=== PATIENT | male | born 1955 | race Caucasian/White ===

== ENCOUNTER 2018-09-04 15:59 | Inpatient (IN) ==
--- NOTE | 2018-09-04 19:09 | ECG ---
Date Performed: 09/04/2018 Time Performed: 16:11:07 PTAGE: 63 years EKG: Sinus rhythm ST DEVIATION AND MODERATE T-WAVE ABNORMALITY, CONSIDER INFERIOR ISCHEMIA ABNORMAL ECG Compared to pr ior electrocardiogram, Nonspecific ST T-wave changes are present. PREVIOUS TRACING : 04/15/2009 10.30 DOCTOR: Austin Davis Interpretating Date/Time 09/04/2018 19:08:44
--- NOTE | 2018-09-04 19:59 | ED ---
HPI General Chief Complaint: Chest Pain Stated Complaint: DR lord-chest pain Time Seen by Provider: 09/04/18 19:48 Source: patient Mode of arrival: ambulatory Limitations: no limitations History of Present Illness HPI narrative: 63-year-old male with a history of CABG, angina, CVA on Plavix presents to the emergency department for evaluation of chest pain that has been persistent for several months. He says he went to [facility] primary care with a performed an EKG and saw a change in his EKG from the previous and decided to send him to the emergency department today for evaluation. He states this morning his pain was 5/10 midsternal and it felt like a "elephant was sitting on his chest". He had radiation into his jaw and left arm and developed a tremor as well. He is currently pain-free. He denies shortness of breath but states he has nausea with these episodes of chest pain. He states activity increases his pain and sitting decreases his pain. He also has a history of hypertension, hyperlipidemia, lifelong smoker and states compliance with his medications. Patient has not been previously prescribed nitroglycerin. Patient saw his brake lining curer, Dr. Simon 2 years ago but has not seen him since. He states that he had stents placed in June at [facility] with a "female brake lining curer". He does not know the name. He has not followed up with cardiology since then. He denies fevers, chills, use of illicit drugs, abdominal pain, leg pain. States he drinks alcohol almost daily but denies history of withdrawal symptoms if he does not drink alcohol. Related Data Home Medications Medication Instructions Recorded Confirmed aspirin 81 mg PO DAILY 09/04/18 09/04/18 clopidogrel [Plavix] 75 mg PO DAILY 09/04/18 09/04/18 enalapril maleate 10 mg PO DAILY 09/04/18 09/04/18 metoprolol tartrate 25 mg PO BID 09/04/18 09/04/18 temazepam 15 mg PO HS 09/04/18 09/04/18 Allergies Allergy/AdvReac Type Severity Reaction Status Date / Time No Known Allergies Uncoded 04/15/09 15:48 Review of Systems ROS: all other systems reviewed are negative [facility] Medical History Medical History Myocardial infarction (Acute) Surgical History Surgical History H/O cardiac catheterization (Acute) H/O heart artery stent (Acute) Social History Social History Substance History: No History of Abuse Smoking Status: Heavy tobacco smoker Tobacco Type: Cigarettes How Often Do You Have a Drink Containing Alcohol: 2 to 4 times a month Recent Travel in [facility] within the Last 8 Weeks: No Recent Out of Country Travel within the Last 8 Weeks: No Immunization History Tetanus Immunization: >5 Years Exam Narrative Exam Narrative: GENERAL: WD, WN in NAD SKIN: Focused skin assessment warm/dry. HEAD: Atraumatic. Normocephalic. EYES: Pupils equal and round. No scleral icterus. No injection or drainage. ENT: No nasal bleeding or discharge. Mucous membranes pink and moist. No tonsillar hypertrophy or exudate. NECK: Trachea midline. No JVD. No meningismus. No midline tenderness. CARDIOVASCULAR: Regular rate and rhythm. No murmur appreciated. RESPIRATORY: No accessory muscle use. Clear to auscultation. Breath sounds equal bilaterally. GASTROINTESTINAL: Abdomen soft, non-tender, nondistended. No CVAT. MUSCULOSKELETAL: No obvious deformities. No clubbing. No cyanosis. No edema. No tenderness to palpation of the calves. Sensation intact to bilateral lower extremities. NEUROLOGICAL: Awake and alert. No obvious cranial nerve deficits. Motor grossly within normal limits. Normal speech. PSYCHIATRIC: Appropriate mood and affect; insight and judgment normal. Course Initial Documented Vital Signs Temperature 97.6 F 09/04/18 16:03 Pulse Rate 64 09/04/18 16:03 Respiratory Rate 18 09/04/18 16:03 Blood Pressure 148/77 H 09/04/18 16:03 Pulse Oximetry 100 09/04/18 16:03 Last Documented Vital Signs Temperature 97.6 F 09/04/18 16:03 Pulse Rate 56 L 09/04/18 21:41 Respiratory Rate 17 09/04/18 21:41 Blood Pressure 129/63 09/04/18 21:41 Pulse Oximetry 94 L 09/04/18 21:41 Medical Decision Making [facility] Narrative Medical decision making narrative: 63-year-old male presents to emergency department for evaluation of chest pain that has been persistent for a couple of months. He decided to come in today for evaluation at the recommendation of his primary care physician. His primary care physician told him that there were some EKG changes. Patient presents very typically for ACS. He does not follow cardiology and he had stents placed in June. We will obtain labs and plan to admit this patient. EKG shows sinus rhythm rate 60, T wave inversions in Leads II, III, aVF. EKG today shows changes from the previous. Our last record was in 2008. Pt brought in an EKG from his office along with note stating concern for EKG changes as an outpatient. Pt took ASA 81mg. Will give complete 243mg ASA in the ED. CXR stable. Labs are notable for troponin 0.62, BUN/Cr 25/1.31. Will discuss this case with cardiology and admit. I spoke with Dr. Rey who recommended heparin therapy. Plan to admit, NPO after midnight for probable cath and stenting in the morning. Heparin initiated. My attending spoke with Dr. Galicia who agreed to the admission under Dr. Youssef. Again, patient is chest pain free at the time of my evaluation. Medical Screen Exam Complete: Yes Emergency Medical Condition: Yes Differential Diagnosis Differential Diagnosis: AMI, angina, unstable angina, costochondritis, rib fracture, pneumonia, pneumothorax, aortic dissection, aortic aneurysm, pneumonitis, pulmonary embolism Lab Data Result diagrams: 09/04/18 20:10 09/04/18 20:10 Lab Results 09/04/18 09/04/18 09/04/18 Range/Units 20:10 20:10 20:10 WBC 9.1 (4.0-11.0) th/mm3 RBC 4.67 (4.50-5.90) mil/mm3 Hgb 15.9 (13.0-17.0) gm/dL Hct 45.8 (39.0-51.0) % MCV 97.9 (80.0-100.0) fL MCH 34.1 H (27.0-34.0) pg MCHC 34.8 (32.0-36.0) % RDW 15.1 (11.6-17.2) % Plt Count 285 (150-450) th/mm3 MPV 7.7 (7.0-11.0) fL Neut % (Auto) 45.7 (16.0-70.0) % Lymph % (Auto) 37.1 (9.0-44.0) % [place] % (Auto) 12.6 H (0.0-8.0) % Eos % (Auto) 3.9 (0.0-4.0) % Baso % (Auto) 0.7 (0.0-2.0) % Neut # (Auto) 4.2 (1.8-7.7) th/mm3 Lymph # (Auto) 3.4 (1.0-4.8) th/mm3 [place] # (Auto) 1.1 H (0.0-0.9) th/mm3 Eos # (Auto) 0.4 (0.0-0.4) th/mm3 Baso # (Auto) 0.1 (0.0-0.2) th/mm3 WBC Differential . Differential Comment Auto diff final PT 9.6 L (9.8-11.6) sec INR 0.9 Ratio APTT 28.2 (23.4-31.7) sec Sodium 140 (136-145) meq/L Potassium 4.3 (3.5-5.1) meq/L Chloride 109 H (98-107) meq/L Carbon Dioxide 25.1 (21.0-32.0) meq/L Anion Gap 6 (5-15) meq/L BUN 25 H (7-18) mg/dL Creatinine 1.31 H (0.60-1.30) mg/dL Estimated GFR 55 L (>89) mL/min Random Glucose 81 (74-106) mg/dL Calcium 8.6 (8.5-10.1) mg/dL Magnesium 2.2 (1.5-2.5) mg/dL Total Bilirubin 0.3 (0.2-1.0) mg/dL AST 20 (15-37) U/L ALT 17 (12-78) U/L Alkaline Phosphatase 88 (45-117) U/L Troponin I 0.62 H* (0.02-0.05) ng/mL Total Protein 7.1 (6.4-8.2) g/dL Albumin 3.3 L (3.4-5.0) g/dL Imaging Data Radiologist's impression: Chest X-Ray 09/04/18 19:59 CONCLUSION: No acute cardiopulmonary disease demonstrated. Previous median sternotomy. Discharge Plan Discharge Disposition Patient Disposition: ED Admit(ED Internal Use Only) Discharge Condition Condition: Stable Discharge Order Discharge Orders: ED Use Only Admit Order (Routine); Ordered 09/04/18 Ordered By: Jen Padilla Discharge Details Diagnosis: ACS (acute coronary syndrome), Non-ST elevation [place] (NSTEMI) Physicians Team ED Provider: Rosendo Grier ED Midlevel Provider: Jen Padilla Primary Care Provider: [facility], Attending Provider: Fabian Youssef Status ED Status: Admitted Patient
--- NOTE | 2018-09-04 20:14 | XR ---
EXAM DATE: 09/04/2018 8:11 PM EST AGE/SEX: 63 years / Male INDICATIONS: Upper chest pain. CLINICAL DATA: This is the patient's initial encounter. Patient reports that signs and symptoms have been present for 1 week and indicates a pain score of 7/10. MEDICAL/SURGICAL HISTORY: Cerebrovascular disease. CABG. Coronary artery stent. COMPARISON: No prior exams available for comparison. FINDINGS: No infiltrate, effusion or pneumothorax demonstrated. Heart size within normal limits. Patient has had previous median sternotomy. CONCLUSION: No acute cardiopulmonary disease demonstrated. Previous median sternotomy. Electronically signed by: Scooter Sterling MD 09/04/2018 8:12 PM EST
[2018-09-04 20:23] LABS: Baso # (Auto) 0.1 th/mm3 (0.0-0.2); Baso % (Auto) 0.7 % (0.0-2.0); Eos # (Auto) 0.4 th/mm3 (0.0-0.4); Eos % (Auto) 3.9 % (0.0-4.0); Hematocrit 45.8 % (39.0-51.0); Hemoglobin 15.9 gm/dL (13.0-17.0); Lymph # (Auto) 3.4 th/mm3 (1.0-4.8); Lymph % (Auto) 37.1 % (9.0-44.0); Mean Corpuscular HGB Conc 34.8 % (32.0-36.0); Mean Corpuscular Hemoglobin 34.1 pg (27.0-34.0); Mean Corpuscular Volume 97.9 fL (80.0-100.0); Mean Platelet Volume 7.7 fL (7.0-11.0); Mono # (Auto) 1.1 th/mm3 (0.0-0.9); Mono % (Auto) 12.6 % (0.0-8.0); Neut # (Auto) 4.2 th/mm3 (1.8-7.7); Neut % (Auto) 45.7 % (16.0-70.0); Platelet Count 285 th/mm3 (150-450); Red Blood Count 4.67 mil/mm3 (4.50-5.90); Red Cell Distribution Width 15.1 % (11.6-17.2); White Blood Count 9.1 th/mm3 (4.0-11.0)
[2018-09-04 20:35] LABS: Activated Partial Thrombo Time 28.2 sec (23.4-31.7); INR 0.9 Ratio; Prothrombin Time 9.6 sec (9.8-11.6)
[2018-09-04 20:43] LABS: Albumin 3.3 g/dL (3.4-5.0); Anion Gap 6 meq/L (5-15); Aspartate Aminotransferase 20 U/L (15-37); Blood Urea Nitrogen 25 mg/dL (7-18); Calcium 8.6 mg/dL (8.5-10.1); Carbon Dioxide 25.1 meq/L (21.0-32.0); Chloride 109 meq/L (98-107); Glomerular Filtration Rate 55 mL/min (>89); Glucose,Random 81 mg/dL (74-106); Magnesium 2.2 mg/dL (1.5-2.5); Potassium 4.3 meq/L (3.5-5.1); Sodium 140 meq/L (136-145)
[2018-09-04 20:44] LABS: Alanine Aminotransferase 17 U/L (12-78)
[2018-09-04 20:48] LABS: Alkaline Phosphatase 88 U/L (45-117); Total Protein 7.1 g/dL (6.4-8.2)
[2018-09-04 20:50] LABS: Troponin I 0.62 ng/mL (0.02-0.05)
[2018-09-04] MEDS ORDERED: Heparin 10,000 UNITS/10 ML Vial (for IV use) IV.PUSH STA (21:08)
[2018-09-04] MEDS ORDERED: Heparin Drip 25,000 UNIT/250 ML BAG IV.CONT PRN (21:20)
--- NOTE | 2018-09-04 22:51 | P.HP ---
History of Present Illness [facility]: [facility] Chief Complaint: Sent by PCP for abnormal electrocardiogram history of chest pain for weeks History of Present Illness: 63-year-old male with a history of coronary artery bypass surgery, angina, CVA on Plavix presents to the emergency department for evaluation of chest pain that has been persistent for several months. Patient went to his primary care physician today had an electrocardiogram performed there was sent to emergency room as they felt there was a change from the old electrocardiogram. Patient states the pain he typically gets is about 5/10 midsternal pain feels like an elephant is sitting on his chest radiating to his jaw or left arm with some mild tremors as well in the emergency room he has been pain-free. Patient denies shortness of breath does have a little bit of nausea with these episodes of chest pain. He is a smoker but is compliant with his medications. Patient has not seen cardiology in over 2 years , although he did say that he had stents placed in June patient denies fever chills abdominal pain or leg pain. He does drink alcohol almost daily. In the emergency room he had T waves inferiorly had a positive troponin consistent with non-stent cardiology is aware and is started the patient on with plan for cath in a.m. n.p.o. after midnight. - Diagnosis (1) ACS (acute coronary syndrome) (2) Non-ST elevation [place] (NSTEMI) Inpatient Certification: I certify that the inpatient services were ordered in accordance with Medicare regulations governing the order. This includes certification that hospital inpatient services are reasonable and necessary and in the case of services not specified as inpatient-only under 42 CFR 419.22(n), that they are appropriately provided as inpatient services in accordance to with the 2-midnight benchmark under 43 CFR 412.3(e) Review of Systems All other systems reviewed negative except as stated in HPI PMFSH - History History Provided By: Patient - Medical History Medical History: Medical History (Last Reviewed 09/04/18 @ 22:49 by Hema Galicia MD) Myocardial infarction - Surgical History Surgical History: Surgical History (Last Reviewed 09/04/18 @ 22:49 by Hema Galicia MD) H/O cardiac catheterization H/O heart artery stent - Tobacco History Tobacco Use In Past 30 Days: Yes Smoking Status: Heavy tobacco smoker Tobacco Type: Cigarettes - Alcohol History How Often Do You Have a Drink Containing Alcohol: 2 to 4 times a month - Substance Use History Substance History: No History of Abuse - Travel History Recent Travel in the [place] Within the Last 8 Weeks: No Recent Travel Out of the Country Within the Last 8 Weeks: No - Immunization History Tetanus Immunization: >5 Years Medications and Allergies Active Medications: Active Medications Clopidogrel Bisulfate (Plavix) 75 mg PO DAILY [facility] Enalapril Maleate (Vasotec) 10 mg PO DAILY [facility] Heparin Sodium/Dextrose (Heparin/D5w 25,000 U/250 Ml) 25,000 unit in 250 mls @ 0 mls/hr IV.CONT TITRATE PRN; Protocol PRN Reason: Per Protocol Last Admin: 09/04/18 21:40 Dose: 1,000 units/hr, 10 mls/hr Metoprolol Tartrate (Lopressor) 25 mg PO BID [facility] Sodium Chloride (Ns Flush) 2 ml IV.FLUSH UNSCH PRN PRN Reason: FLUSH AFTER USING IV ACCESS Temazepam (Restoril) 15 mg PO [facility] Allergies Allergy/AdvReac Type Severity Reaction Status Date / Time No Known Allergies Uncoded 04/15/09 15:48 Home Medications Medication Instructions Recorded Confirmed Type aspirin 81 mg PO DAILY 09/04/18 09/04/18 History clopidogrel [Plavix] 75 mg PO DAILY 09/04/18 09/04/18 History enalapril maleate 10 mg PO DAILY 09/04/18 09/04/18 History metoprolol tartrate 25 mg PO BID 09/04/18 09/04/18 History temazepam 15 mg PO HS 09/04/18 09/04/18 History Exam Vital signs: Vital Signs 09/04/18 16:03 09/04/18 21:41 Temperature 97.6 F Pulse Rate 64 56 L Respiratory Rate 18 17 Blood Pressure 148/77 H 129/63 Pulse Oximetry 100 94 L Intake & Output 09/04/18 09/04/18 09/05/18 06:59 18:59 06:59 Weight 79.379 kg Narrative: GENERAL: SKIN: Warm and dry. HEAD: Normocephalic. EYES: No scleral icterus. No injection or drainage. NECK: Supple, trachea midline. No JVD or lymphadenopathy. CARDIOVASCULAR: Regular rate and rhythm without murmurs, gallops, or rubs. RESPIRATORY: Breath sounds equal bilaterally. No accessory muscle use. GASTROINTESTINAL: Abdomen soft, non-tender, nondistended. MUSCULOSKELETAL: No cyanosis, or edema. BACK: Nontender without obvious deformity. No CVA tenderness. Results - Labs CBC & Chem 7: 09/04/18 20:10 09/04/18 20:10 Labs: Laboratory Results - last 24 hr 09/04/18 09/04/18 09/04/18 20:10 20:10 20:10 WBC 9.1 RBC 4.67 Hgb 15.9 Hct 45.8 MCV 97.9 MCH 34.1 H MCHC 34.8 RDW 15.1 Plt Count 285 MPV 7.7 Neut % (Auto) 45.7 Lymph % (Auto) 37.1 [place] % (Auto) 12.6 H Eos % (Auto) 3.9 Baso % (Auto) 0.7 Neut # (Auto) 4.2 Lymph # (Auto) 3.4 [place] # (Auto) 1.1 H Eos # (Auto) 0.4 Baso # (Auto) 0.1 WBC Differential . Differential Comment Auto diff final PT 9.6 L INR 0.9 APTT 28.2 Sodium 140 Potassium 4.3 Chloride 109 H Carbon Dioxide 25.1 Anion Gap 6 BUN 25 H Creatinine 1.31 H Estimated GFR 55 L Random Glucose 81 Calcium 8.6 Magnesium 2.2 Total Bilirubin 0.3 AST 20 ALT 17 Alkaline Phosphatase 88 Troponin I 0.62 H* Total Protein 7.1 Albumin 3.3 L - Imaging Impressions Chest X-Ray 09/04/18 19:59 CONCLUSION: No acute cardiopulmonary disease demonstrated. Previous median sternotomy. Caprini VTE Risk Assessment Caprini VTE Risk Assessment: Moderate/High Risk (score >= 2) Caprini Risk Assessment Model: Point Value = 1 Point Value = 2 Point Value = 3 Point Value = 5 Age 41-60 Minor surgery BMI > 25 kg/m2 Swollen legs Varicose veins or History of unexplained or recurrent spontaneous Oral contraceptives or hormone replacement Sepsis (< 1 month) Serious lung disease, including pneumonia (< 1 month) Abnormal pulmonary function Acute myocardial infarction Congestive heart failure (< 1 month) History of inflammatory bowel disease Medical patient at bed rest Age 61-74 Arthroscopic surgery Major open surgery (> 45 min) Laparoscopic surgery (> 45 min) Malignancy Confined to bed (> 72 hours) Immobilizing plaster cast Central venous access Age >= 75 History of VTE Family history of VTE Factor V Leiden Prothrombin [id number] Lupus anticoagulant Anticardiolipin antibodies Elevated serum homocysteine Heparin-induced thrombocytopenia Other congenital or acquired thrombophilia Stroke (< 1 month) Elective arthroplasty Hip, pelvis, or leg fracture Acute spinal cord injury (< 1 month) Prophylaxis Regimen: Total Risk Factor Score Risk Level Prophylaxis Regimen 0-1 Low Early ambulation 2 Moderate Order ONE of the following: *Sequential Compression Device (SCD) *Heparin 5000 units SQ BID 3-4 Higher Order ONE of the following medications: *Heparin 5000 units SQ TID *Enoxaparin/Lovenox 40 mg SQ daily (WT < 150 kg, CrCl > 30 mL/min) *Enoxaparin/Lovenox 30 mg SQ daily (WT < 150 kg, CrCl > 10-29 mL/min) *Enoxaparin/Lovenox 30 mg SQ BID (WT < 150 kg, CrCl > 30 mL/min) AND/OR *Sequential Compression Device (SCD) 5 or more Highest Order ONE of the following medications: *Heparin 5000 units SQ TID (Preferred with Epidurals) *Enoxaparin/Lovenox 40 mg SQ daily (WT < 150 kg, CrCl > 30 mL/min) *Enoxaparin/Lovenox 30 mg SQ daily (WT < 150 kg, CrCl > 10-29 mL/min) *Enoxaparin/Lovenox 30 mg SQ BID (WT < 150 kg, CrCl > 30 mL/min) AND *Sequential Compression Device (SCD) Assessment and Plan - Assessment (1) ACS (acute coronary syndrome) Code(s): I24.9 - Acute ischemic heart disease, unspecified Status: Acute Plan: ACS protocol consult cardiology (2) Non-ST elevation DE (NSTEMI) Code(s): I21.4 - Non-ST elevation (NSTEMI) myocardial infarction Status: Acute Plan: Consult cardiology admit to cardiac unit - Plan Further plan as case develops Code Status: Full Discussed Condition With: Patient
[2018-09-05 03:33] LABS: Hematocrit 43.5 % (39.0-51.0); Hemoglobin 14.8 gm/dL (13.0-17.0); Mean Corpuscular Hemoglobin 33.7 pg (27.0-34.0); Mean Corpuscular Volume 99.2 fL (80.0-100.0); Mean Platelet Volume 7.3 fL (7.0-11.0); Platelet Count 262 th/mm3 (150-450); Red Blood Count 4.38 mil/mm3 (4.50-5.90); Red Cell Distribution Width 14.6 % (11.6-17.2); White Blood Count 8.4 th/mm3 (4.0-11.0)
--- NOTE | 2018-09-05 08:58 | P.CONCA ---
History of Present Illness Primary Care Provider: [facility] Chief Complaint: Sent by PCP for abnormal electrocardiogram history of chest pain for weeks History of Present Illness: 63-year-old male with past medical history of CAD with PCI 2006 CABG LYNNE-LAD 2008 PCI 06/2018, PAD with right iliac stent 2001, HTN who presented with chest pain. The patient was previously followed by Dr. Simon, but last saw him 2.5 years ago. He states that with his insurance he was no longer able to see Dr. Simon. He recently established with for healthcare plans but has not yet been able to see his PCP. He reports that he has been having angina for the past few weeks. He reports he was in for a [facility] in June and required 2 stents placed at that time with Dr. Moran. Cath report from 06/02 with patently mid LAD with totally occluded proximal LAD, PCI to critical mid left circumflex stenosis and distal RCA lesion. he reports for about 2 weeks his chest discomfort was improved but then recurred. He reports his chest discomfort occurs with exertion and at night at rest. Chest discomfort is described as midsternal radiating to the jaw on left arm. He went to urgent care yesterday with chest discomfort was found to have EKG changes and sent to the ED. EKG in the ED shows NSR, lateral ST depressions, inferior T wave inversions. Troponin found to be 0.62. Patient started on heparin GTT. Chest pain relieved overnight with Nitropaste. Review of Systems All other systems reviewed negative except as stated in HPI PMFSH - History History Provided By: Patient, Medical Record - Medical History Medical History: Medical History (Last Updated 09/05/18 @ 08:53 by VAHID Ortiz) CAD (coronary artery disease) HTN (hypertension) Myocardial infarction PAD (peripheral artery disease) - Surgical History Surgical History: Surgical History (Last Updated 09/05/18 @ 08:53 by VAHID Ortiz) H/O cardiac catheterization H/O heart artery stent S/P CABG x 1 Status post insertion of iliac artery stent - Tobacco History Second Hand Smoke Exposure: Yes Tobacco Use In Past 30 Days: Yes Smoking Status: Current every day smoker Tobacco Type: Cigarettes - Alcohol History How Often Do You Have a Drink Containing Alcohol: 4 or more times a week - Substance Use History Substance History: No History of Abuse - Travel History Recent Travel in the [facility] Within the Last 8 Weeks: No Recent Travel Out of the Country Within the Last 8 Weeks: No - Immunization History Tetanus Immunization: >5 Years Medications and Allergies Allergies Allergy/AdvReac Type Severity Reaction Status Date / Time No Known Allergies Uncoded 04/15/09 15:48 Home Medications Medication Instructions Recorded Confirmed Type aspirin 81 mg PO DAILY 09/04/18 09/04/18 History clopidogrel [Plavix] 75 mg PO DAILY 09/04/18 09/04/18 History enalapril maleate 10 mg PO DAILY 09/04/18 09/04/18 History metoprolol tartrate 25 mg PO BID 09/04/18 09/04/18 History temazepam 15 mg PO HS 09/04/18 09/04/18 History Active Medications: Active Medications Aspirin (Aspirin Chew) 81 mg PO DAILY [facility] Clopidogrel Bisulfate (Plavix) 75 mg PO DAILY [facility] Enalapril Maleate (Vasotec) 10 mg PO DAILY [facility] Heparin Sodium/Dextrose (Heparin/D5w 25,000 U/250 Ml) 25,000 unit in 250 mls @ 0 mls/hr IV.CONT TITRATE PRN; Protocol PRN Reason: Per Protocol Last Admin: 09/04/18 21:40 Dose: 1,000 units/hr, 10 mls/hr Metoprolol Tartrate (Lopressor) 25 mg PO BID [facility] Nitroglycerin (Nitro-Bid 2% Oint) 1 inch TOPICAL Q8HR [facility] Last Admin: 09/05/18 05:12 Dose: 1 inch Sodium Chloride (Ns Flush) 2 ml IV.FLUSH UNSCH PRN PRN Reason: FLUSH AFTER USING IV ACCESS Temazepam (Restoril) 15 mg PO [facility] Exam Vital signs: Vital Signs 09/04/18 16:03 09/04/18 21:41 09/04/18 23:51 Temperature 97.6 F 98.5 F Pulse Rate 64 56 L 56 L Respiratory Rate 18 17 17 Blood Pressure 148/77 H 129/63 152/87 H Pulse Oximetry 100 94 L 96 09/05/18 03:42 09/05/18 04:00 09/05/18 05:00 Temperature 98.5 F Pulse Rate 56 L 58 L 54 L Respiratory Rate 15 Blood Pressure 126/71 Pulse Oximetry 96 09/05/18 06:00 09/05/18 08:17 09/05/18 08:18 Temperature 97.8 F Pulse Rate 60 61 Respiratory Rate 18 Blood Pressure 118/73 Pulse Oximetry 97 97 Intake & Output 09/04/18 09/05/18 09/05/18 18:59 06:59 18:59 Intake Total 240 / 240 Output Total 475 / 475 Balance -235 / -235 Weight 175 lb 147 lb 11.355 oz Intake: Oral 240 / 240 Output: Urine 475 / 475 Other: Weight On Admission 146 lb 9.718 oz Narrative: GENERAL: Well-developed well-nourished. In no acute distress. NECK: No carotid bruits. No JVD. CARDIOVASCULAR: Regular rate and rhythm. No murmur appreciated. RESPIRATORY: No accessory muscle use. Clear to auscultation. Breath sounds equal bilaterally. MUSCULOSKELETAL: No clubbing or cyanosis. No edema. NEUROLOGICAL: Awake and alert. Normal speech. Results 09/05/18 03:23 09/04/18 20:10 Cardiac Enzymes 09/04/18 Range/Units 20:10 AST 20 (15-37) U/L Troponin I 0.62 H* (0.02-0.05) ng/mL Coagulation 09/04/18 09/05/18 Range/Units 20:10 03:23 PT 9.6 L (9.8-11.6) sec APTT 28.2 56.2 H D (23.4-31.7) sec CBC 09/04/18 09/05/18 Range/Units 20:10 03:23 WBC 9.1 8.4 (4.0-11.0) th/mm3 RBC 4.67 4.38 L (4.50-5.90) mil/mm3 Hgb 15.9 14.8 (13.0-17.0) gm/dL Hct 45.8 43.5 (39.0-51.0) % Plt Count 285 262 (150-450) th/mm3 Neut # (Auto) 4.2 (1.8-7.7) th/mm3 Lymph # (Auto) 3.4 (1.0-4.8) th/mm3 [place] # (Auto) 1.1 H (0.0-0.9) th/mm3 Eos # (Auto) 0.4 (0.0-0.4) th/mm3 Baso # (Auto) 0.1 (0.0-0.2) th/mm3 Comprehensive Metabolic Panel 09/04/18 Range/Units 20:10 Sodium 140 (136-145) meq/L Potassium 4.3 (3.5-5.1) meq/L Chloride 109 H (98-107) meq/L Carbon Dioxide 25.1 (21.0-32.0) meq/L BUN 25 H (7-18) mg/dL Creatinine 1.31 H (0.60-1.30) mg/dL Calcium 8.6 (8.5-10.1) mg/dL AST 20 (15-37) U/L ALT 17 (12-78) U/L Alkaline Phosphatase 88 (45-117) U/L Total Protein 7.1 (6.4-8.2) g/dL Albumin 3.3 L (3.4-5.0) g/dL Intake and Output 09/04/18 09/05/18 09/05/18 22:59 06:59 14:59 Intake Total 240 / 240 Output Total 475 / 475 Balance -235 / -235 Intake: Oral 240 / 240 Output: Urine 475 / 475 Other: Weight 175 lb 147 lb 11.355 oz Weight On Admission 146 lb 9.718 oz - Imaging and Cardiology Imaging: Impressions Chest X-Ray 09/04/18 19:59 CONCLUSION: No acute cardiopulmonary disease demonstrated. Previous median sternotomy. Assessment and Plan - Plan 63-year-old male with past medical history of CAD with PCI 2006 CABG LYNNE-LAD 2008 PCI 06/2018, PAD with right iliac stent 2001, HTN who presented with chest pain NSTEMI: N.p.o. for [facility] today. Change Nitropaste to Imdur 60 mg daily. Continue heparin GTT for now. Start atorvastatin 40 mg. Continue aspirin, Plavix, metoprolol, enalapril. Discussed Condition With: Patient seen with Dr. Caputo. - Attending Attestation agree with above [facility] PCI RCA [place] PCI LCx [place] long acting nitrate DC Planning for tomorrow
[2018-09-05] MEDS: Metoprolol Tartrate 25 MG Tablet PO SCH ×2 (09:29→21:40)
[2018-09-05] MEDS ORDERED: Acetaminophen 325 MG Tablet PO PRN (09:30)
[2018-09-05] MEDS ORDERED: Heparin/NS PF Inj 1,500 ML ONE (09:47)
[2018-09-05] MEDS ORDERED: fentaNYL Citrate Inj 100 MCG/2 ML Ampul ONE (09:47)
[2018-09-05] MEDS ORDERED: Lidocaine PF 1% Inj 30 ML Vial ONE (09:56)
[2018-09-05] MEDS ORDERED: Heparin 10,000 UNITS/10 ML Vial (for IV use) ONE (10:28)
--- NOTE | 2018-09-05 10:38 | P.PNIM ---
Subjective Interval history: Pt is seen following LHC with Dr. Rey. Pt has NO new clinical complaints. Physical Exam Vital signs: Last Vital Signs Temp 97.8 F 09/05/18 08:18 Pulse 61 09/05/18 08:18 Resp 18 09/05/18 08:18 BP 118/73 09/05/18 08:18 Pulse Ox 97 09/05/18 08:18 Narrative: GENERAL: This is a well-nourished, well-developed patient, in no apparent distress. CARDIOVASCULAR: Regular rate and rhythm without murmurs, gallops, or rubs. RESPIRATORY: Clear to auscultation. Breath sounds equal bilaterally. No wheezes , rales, or rhonchi. GASTROINTESTINAL: Abdomen soft, non-tender, nondistended. Normal active bowel sounds MUSCULOSKELETAL: Extremities without clubbing, cyanosis, or edema. NEURO: Alert & Oriented x4 to person, place, time, situation. Moves all ext x4 Results Labs CBC & Chem 7: 09/05/18 03:23 09/04/18 20:10 Assessment and Plan Assessment (1) ACS (acute coronary syndrome): Code(s): I24.9 - Acute ischemic heart disease, unspecified Status: Acute (2) Non-ST elevation MA (NSTEMI): Code(s): I21.4 - Non-ST elevation (NSTEMI) myocardial infarction Status: Acute Plan 1) NSTEMI - 63-year-old male with past medical history of CAD - 2006 CABG LYNNE-LAD 2008 PCI 06/2018, - PAD with right iliac stent 2001 & HTN - The patient was previously followed by Dr. Simon, but last saw him 2.5 years ago. - Pt had [address] Moran (06/02) - mid LAD with totally occluded proximal LAD, - PCI to critical mid left circumflex stenosis and distal RCA lesion. - Pt reported to the [place] [facility] (09/04) with c/o severe chest pain with radiation to the jaw & left arm - Pt noted to have EKG changes and elevated troponin - ASA, plavix, enalapril, metoprolol, imdur lipitor - Pt underwent LHC with Dr. Yomi Rey (09/05) - Case d/w Dr. Rey (09/05) - Pt had 2 KING placed at RCA - Pt had 1 KING placed at circumflex artery. - SCDs - supporitve care - anticipate d/c to home 09/06/18 - Pt continues to actively smoke. I have counselled pt on the importance of smoking cessation. Progress Note: Quality VTE Deep Vein Thrombosis/Pulmonary Embolism Present on Admission: No
[2018-09-05] MEDS ORDERED: Lidocaine 2% Jelly 5 ML Syringe TOPICAL PRN (10:57)
[2018-09-05] MEDS ORDERED: Misc Info for Pharmacy OTHER STA (10:57)
--- NOTE | 2018-09-05 11:08 | P.PCN ---
Date of procedure: 09/05/18 Pre-op diagnosis: Non-ST elevation myocardial infarction Procedure: stenotype operator: Manish Rey MD Procedures performed: 1. Fluoroscopy with interpretation 2. Coronary angiography 3. Coronary artery bypass graft angiography 4. Percutaneous coronary intervention with drug-eluting stents to the mid and distal right coronary artery 5. Percutaneous coronary intervention to the left circumflex coronary artery Methods: Risks, benefits, and alternatives were discussed with the patient. Patient understood and consented to the procedure. Patient was brought into the cardiac catheterization lab and placed on the catheterization table. The patient's right groin was prepped and draped in a sterile fashion. Right common femoral artery was cannulated and a 5 Mosotho 11 cm sheath was placed without difficulty. Coronary angiography: Left coronary circulation selective engaged with a 6 Mosotho JL4 catheter. The right coronary circulation is likely engaged with a 6 Mosotho JR4 catheter. 1. Left main coronary small caliber size with minor luminal irregularities 2. Left anterior descending coronary is occluded after the bifurcation of a septal manager generation. Proximal left anterior descending coronary is 90% stenosis. 3. Left circumflex has a stent present in its proximal segment leading to a small obtuse marginal branch. There is 90% in-stent restenosis. 4. The right coronary is dominant for skin rise to the posterior descending branch. The distal right coronary artery has a stent present there is 99% subtotal occlusion in the distal right coronary with in-stent restenosis. Coronary artery bypass graft angiography: 1. Left internal mammary artery was selected engaged with a 5 Mosotho IM catheter. The proximal mammary artery had some spasm present with 30% stenosis. The remainder the vessel is widely patent. Left anterior descending coronary is patent and backfills to the diagonal branch. Percutaneous coronary intervention: Right coronary sickly since likely engaged with a 6 Mosotho JR 5 catheter. A 0.014 inch 300 cm RealDirectumSeevibes run through wire was navigated down the distal posterior descending branch. A 2.0 x 20 mm CSI balloon was then deployed in 2 sequential inflations in the distal right coronary artery. A 2.5 x 38 mm Rx resolute [place] stent was deployed in the distal right coronary extending into the proximal posterior descending branch. Intracoronary nitroglycerin was administered. The mid segment of the right coronary artery was stented with a 3.0 x 38 mm resolute [place] stent. Repeat angiography showed no residual stenosis. Left coronary sickly since likely gated a 6 Mosotho XB 3.5 guide catheter. The Terumo wire was navigated down the distal circumflex coronary artery. A 2.25 x 26 mm Rx resolute [place] was then deployed in the proximal left circumflex coronary artery. Repeat angiography showed no residual stenosis KWADWO-3 flow. Heparin was administered throughout the entire procedure to maintain appropriate anticoagulation. Sheath was sewn into place to be removed with manual hemostasis. Conclusions: 1. Severe three-vessel pala coronary artery disease 2. The left internal mammary artery bypass graft is widely patent to the left anterior descending coronary artery. 3. Severe in-stent restenosis of the right coronary and left circumflex coronary stents 4. Successful percutaneous coronary intervention with drug-eluting stents to the right coronary artery and left circumflex coronary artery. Plan: We will continue with guideline directed medical therapy. Maximize long-acting nitrate therapy to 120 mg once daily. Continue aspirin, Plavix, and beta- shawn therapy. Monitor for any postprocedural complications. Can likely be discharged tomorrow after ambulation. Follow-up with Dr. Caputo in the outpatient setting.
--- NOTE | 2018-09-05 11:10 | CATHPROC ---
[facility] HIS Report Study Information Study Number Admission Scheduled Start Study Start [id number] Sep 04 2018 9:09PM 09/05/2018 Sep 05 2018 9:45AM [place] Service Cardiac Catheterization Admit Source Facility Department Other [facility] - Socially Responsible Investment Adviser Physician and Clinical Staff Initial Yomi Flores Customer Greeter Luke Valentino,RN Other cathlab, cathlab Recorder Angie Li,MANAGER ORGANIZATIONAL TECH2 Scrub Agus, Kathy,RT(R) Procedures Performed Procedure Location (Site) Vessel Name Coronary Angiograms LCA Left Coronary Coronary Angiograms RCA Right Coronary Coronary Angiograms LYNNE Graft Left Coronary Drug Eluting Inflatio CIRC Mid CIRC Drug Eluting Inflatio RCA Dist Right Coronary Drug Eluting Inflatio RCA Prox Right Coronary L Heart Cath PTCA RCA Dist Right Coronary PTCA RCA Mid Right Coronary Wire insertion Fem Art (right) Femoral Art Equipment Time Rehab Nurse Description Size Mfg Part Number Used/Scraped TRANSDUCER, TRUWAVE [id number] 09:47 BRADSHAW PHILLIPS * Used W/STOCKCOCK *[id number] [id number] *[id number] [id number] *[id number] *[id number] *[id number] 09:47 [employer] [place] BLANKET,WARM AIR CCL * Used *[id number] 09:47 [employer] [place] PACK, CCL CUSTOM * Used *[id number] 09:47 [employer] PACER PEN, SKIN DUAL W/ RULER * Used *[id number] 10:14 MED[employer] IM DXTERITY CATHETER FR 5 Used *[id number] PIG ANG 145 DXTERITY [id number] 10:06 [employer]IC FR 5 Used CATHETER *[id number] 10:51 MED[employer]IC STENT, 2.25 26MM LINDSAY 2.25 26MM [id number] Used 10:42 MEDTR[employer]IC STENT, 2.5 38MM LINDSAY 2.5 38MM [id number] Used 10:44 MEDTRONIC STENT, 3.0 38MM LINDSAY 3.0 38MM [id number] Used [id number] 10:36 [email or web address] MEDICAL 30 DILLAN INDEFLATOR Used *[id number] 10:29 [email or web address] MEDICAL SHEATH, FR6.5 PRELUDE 11CM FR 6.5 038ACT Used *[id number] 09:47 [employer] WIRE, 3MMJ .035 180CM 180CM Used *[id number] 09:47 NAMIC MANIFOLD, 4 PORT * Used *[id number] 09:47 [employer]COMED OMNIPAQUE, 350 MG, 150ML 150ML [id number] Used 10:29 [employer]COMED OMNIPAQUE, 350 MG, 50ML 50ML [id number] Used [id number] 09:47 TERUMO MEDICAL SHEATH, FR5 TERUMO (10CM) FR 5 Used *[id number] WIRE, RUNTHROUGH NS FLOPPY 25-1013 10:27 TERUMO MEDICAL 300CM Used .014 300CM *[id number] Equipment Model, Serial, Lot Number and Expiration Data Description Model Number Serial Number Lot Number Expiration Date IM DXTERITY CATHETER [id number] 07-14-2020 PIG ANG 145 DXTERITY CATHETER [id number] 01-26-2020 History: Current Medications Medication Dosage/Unit Route Frequency Last Date/Time Taken ASA PLAVIX LIPITOR Imdur LOPRESSOR History: Allergies Allergy Reaction No Known Allergies History: Risk Factors Family History of Hypertension Dyslipidemia Previous NC Previous Heart Failure Premature CAD Yes Yes No Yes Yes Prior Valve Prior PCI Prior PCIDate Prior CABG Prior CABGDate Surgery No Yes 06/03/2018 Yes 01/01/2009 Cerebrovascular Peripheral Artery Chronic Lung On Dialysis Diabetes Disease Disease Disease No No Yes Yes No History: Risk Factors Selection Items Current Smoker History: Symptoms/Diagnosis Selection Items Chest pain History: Stress Tests Stress or Imaging Studies Performed No History: Other Disease Selection Items CAD COPD HTN History: NC/CV Data Previous Cath Date Previous CABG Date 06/03/2018 01/01/2009 History: Other Current Smoker Method Packs a Day Years Used Pack Years Yes Cigarettes 1 50 50 Labs Hgb (g/dl) Hct (%) WBC (l/cumm) Platelets (thousands) 11.60-17.00 35.00-51.00 4.00-11.00 150.00-450.00 14.8 43.5 8.4 262 Glucose (mg/dl) BUN (mg/dl) Creatinine (mg/dl) BUN:Creatinine (1:x) 74.00-106.00 7.00-18.00 0.50-1.30 10.00-20.00 81 25 1.3 19.2 Na (meq/l) K (meq/l) 136.00-145.00 3.50-5.10 140 4.3 Troponin I (ng/ml) 0.02-0.05 0.6 Medication Medication Total Dose (Bolus/Oral) Medication Total Dosage/Unit 1% XYLOCAINE 20 mL FENTANYL 50 mcg HEPARIN 68727 units NTG (IC) 300 mcg VERSED 2 mg Medications (Bolus/Oral) Medication Time Given Dosage/Unit Administered By Reason VERSED 09/05/2018 10:09:43 AM 2 mg Chelsy, Luke 2 mg VERSED given in lab by Luke Valentino RN in Right Arm via Peripheral IV. Ordered by Blaire Rey FENTANYL 09/05/2018 10:10:45 AM 50 mcg Chelsy, Luke 50 mcg FENTANYL given in lab by Luke Valentino RN in Right Arm via Peripheral IV. Ordered by [facility] jim[facility] Rey. 1% XYLOCAINE 09/05/2018 10:13:25 AM 20 mL Yomi Rey 20 mL 1% XYLOCAINE given in lab by Yomi Rey in Right Groin via Subcutaneous. Ordered by Yomi Rey. HEPARIN 09/05/2018 10:30:10 AM 94644 units Chelsy, Luke 24407 units HEPARIN given in lab by Luke Valentino RN in Right Arm via Peripheral IV. Ordered by Yomi Rey. NTG (IC) 09/05/2018 10:30:46 AM 200 mcg Luke Valentino 200 mcg NTG (IC) given in lab by Luke Valentino RN in Right Groin via Intra-coronary. Ordered by Yomi Rey. NTG (IC) 09/05/2018 10:46:00 AM 100 mcg Yomi Rey 100 mcg NTG (IC) given in lab by Yomi Rey in Right Groin via Intra-coronary. Ordered by Yomi Rey. Medication (Drip) Medication Time Given Dosage/Unit Concentration/Unit Diluent (ml) Solution IV Solutions 09/05/2018 9:45:03 AM 0 mL (IV) 500 NaCl .9 IV Solutions given in lab by Luke Valentino RN in Right Arm via Peripheral IV. Pump/Drip Flow = 20 ml/ hr using NaCl .9. Ordered by Yomi Rey. Initial Case Assessment Cardiovascular HR NIBP 56 150/78 Edema Present Skin color Skin None Normal Warm Dry Circulatory - Right Pulses Dorsalis Pedis Femoral 1 2 Scale (0,1,2,3,4,d) Circulatory - Left Pulses Dorsalis Pedis Femoral 1 2 Scale (0,1,2,3,4,d) Neurological State Oriented to time-place- Alert Moves all extremities person Respiration - General Respiration Rate SpO2 (%) (B/min) 15 98 Final Case Assessment Cardiovascular HR NIBP 52 146/91 Edema Present Skin color Skin None Normal Warm Dry Circulatory - Right Pulses Dorsalis Pedis Femoral 1 2 Scale (0,1,2,3,4,d) Circulatory - Left Pulses Dorsalis Pedis Femoral 1 2 Scale (0,1,2,3,4,d) Neurological State Oriented to time-place- Alert Moves all extremities person Respiration - General Respiration Rate SpO2 (%) (B/min) 13 98 Chronological Log Time Study Chronological Log 9:42:42 Patient arrived via Bed. Vitals capture started with the following parameters, Patient=Adult, Interval=5 min, Initial Pr oqpivp=595 mmHg, 9:44:46 Deflation Rate=5 mmHg, Cuff placed on Left Arm 9:44:48 Patient Name, D.O.B, / Armband Verified By R.N. 9:44:49 Consent signed by the physician and the patient and verified by the Socially Responsible Investment Adviser staff. 9:44:50 Pre-op and post- op instructions given; patient acknowledges understanding of instructions. 9:44:54 Patient has been NPO for More than 6Hrs. 9:44:56 NO Skin Breakdown- 9:44:59 Patient Warmer Placed on the Table. 9:45:00 Elva Prominences Protected 9:45:03 A # 20 IV was noted in the Upper Arm (right). Grade = 0 IV Solutions given in lab by Luke Valentino, RN in Right Arm via Peripheral IV. Pump/Drip Flow = 20 ml/hr using NaCl .9. 9:45:03 Ordered by Yomi Rey. 9:45:04 History and physical on the chart or being dictated. 9:45:22 BXYU=874/76 mmhg, TcM4=867.0 %, Resp=15 B/min, Pain=0, Olga=10, Monk=2 9:50:21 HR=56 bpm, YIUQ=276/78 mmhg, SpO2=98.0 %, Resp=15 B/min, Pain=0, Olga=10, Monk=2 9:51:09 Reference ECG taken Assessment: Initial Case, HR=56 BPM, MTTF=369/78 mmhg, Edema=None, Color=Normal, Skin = Warm, D ry Right Pulses: Bill Ped=1, Femoral=2 9:51:38 Left Pulses: Bill Ped=1, Femoral=2 Neurological: State=Alert, Ox3, CULVER Respiration: Resp=15 B/min, SpO2=98 % 9:55:20 HR=56 bpm, SLSM=915/92 mmhg, SpO2=98.0 %, Resp=11 B/min, Pain=0, Olga=10, Monk=2 9:56:24 Bilateral groins prepped with 2% chlorhexidine, and draped after a 3 minute waiting time. 10:00:21 HR=57 bpm, GZQA=582/85 mmhg, SpO2=97.0 %, Resp=8 B/min, Pain=0, Olga=10, Monk=2 10:01:12 Pressure channel 1 zeroed. 10:05:20 HR=57 bpm, IART=361/84 mmhg, SpO2=97.0 %, Resp=10 B/min, Pain=0, Olga=10, Monk=2 10:09:43 2 mg VERSED given in lab by Luke Valentino RN in Right Arm via Peripheral IV. Ordered by Yomi Jean. 10:10:23 HR=55 bpm, JNOD=009/85 mmhg, SpO2=97.0 %, Resp=13 B/min, Pain=0, Olga=10, Monk=2 10:10:45 50 mcg FENTANYL given in lab by Luke Valentino RN in Right Arm via Peripheral IV. Ordered by Yomi Rey. Time Out. Correct patient, correct procedure, correct physician, labs, allergies, and equipment verified with cathode builder 10:12:30 team present. Fire risk assesment completed (see hard stop sheet for coding). Time Out Conc urred by and individual staff in procedure. 10:12:33 Case Start 10:13:25 20 mL 1% XYLOCAINE given in lab by Yomi Rey in Right Groin via Subcutaneous. Ordered by Yomi Rey. 10:13:48 Access site was Right Femoral Artery. 10:14:28 A SHEATH, FR5 TERUMO (10CM) FR 5 was advanced into the Fem Art (right) using the Modified S eldinger technique. A JL 4.0 INFINITI CATHETER FR 5 was advanced over a wire. OMNIPAQUE, 350 MG, 150ML 150ML was us ed for ::41 injections. 10:15:26 HR=65 bpm, ZXWW=866/70 mmhg, SpO2=92 %, Resp=11 B/min, Pain=0, Olga=10, Monk=2 10:15:41 The LCA was injected and visualized at various angles. OMNIPAQUE, 350 MG, 150ML 150ML used . Recorded Pressure: Ao, HR=59, Condition=Condition 1 10:16:30 (Aorta) Ao 112/60/80 After removing the current catheter a JR 4.0 INFINITI CATHETER FR 5 was advanced over a WIRE, 3 MMJ .035 180CM 10:16:54 180CM. Recorded Pressure: LV, LN=739, Condition=Condition 1 10:18:00 (Left Ventricle) LV 134/88/24 Recorded Pressure: LV, Ao, HR=73, Condition=Condition 1 10:18:04 (Left Ventricle) LV 134/88/24, (Aorta) Ao 135/54/87 10:18:45 The RCA was injected and visualized at various angles. OMNIPAQUE, 350 MG, 150ML 150ML used . After removing the current catheter a IM DXTERITY CATHETER FR 5 was advanced over a WIRE, 3MMJ .035 180CM 10:19:51 180CM. 10:20:19 HR=60 bpm, YPFJ=196/58 mmhg, SpO2=95.0 %, Resp=13 B/min, Pain=0, Olga=10, Monk=2 10:23:37 A WIRE, 3MMJ .035 180CM 180CM was inserted via Fem Art (right). 10:23:51 Wire removed 10:25:18 HR=57 bpm, ULWP=490/68 mmhg, SpO2=93 %, Resp=10 B/min, Pain=0, Olga=10, Monk=2 After removing the current catheter a IM DXTERITY CATHETER FR 5 was advanced over a WIRE, 3MMJ .035 180CM 10:26:58 180CM. 10:27:24 The LYNNE Graft was injected and visualized at various angles. OMNIPAQUE, 350 MG, 150ML 150M L used. 10:27:38 Catheter was removed A SHEATH, FR6.5 PRELUDE 11CM FR 6.5 was exchanged in the Fem Art (right). This was necessary in order for 10:28:07 catheter support. A JR 5.0 GUIDE CATHETER FR 6 was advanced over a wire. OMNIPAQUE, 350 MG, 150ML 150ML was used for 10:29:41 injections. 10:30:10 45118 units HEPARIN given in lab by Luke Valentino RN in Right Arm via Peripheral IV. Ordere d by Yomi Rey. 10:30:21 HR=53 bpm, VTUN=337/69 mmhg, SpO2=96.0 %, Resp=13 B/min, Pain=0, Olga=10, Monk=2 10:30:46 200 mcg NTG (IC) given in lab by Luke Valentino RN in Right Groin via Intra-coronary. Ordere d by Yomi Rey. 10:32:04 A wire was inserted via Fem Art (right). 10:32:07 Interventional wire has crossed the lesion 10:34:57 A balloons was inserted over WIRE, 3MMJ .035 180CM 180CM via the RCA Dist. SAPPHIRE II PRO 2.0 X 20 10:35:22 HR=57 bpm, XJJP=196/71 mmhg, SpO2=99 %, Resp=12 B/min, Pain=0, Olga=10, Monk=2 A balloons over a WIRE, RUNTHROUGH NS FLOPPY .014 300CM 300CM in the RCA Dist was inflated usin g a 30 DILLAN 10:35:42 INDEFLATOR at 8 dillan for 15 sec. SAPPHIRE II PRO 2.0 X 20 A balloons over a WIRE, RUNTHROUGH NS FLOPPY .014 300CM 300CM in the RCA Dist was inflated usin g a 30 DILLAN 10:35:59 INDEFLATOR at 10 dillan for 12 sec. SAPPHIRE II PRO 2.0 X 20 A balloons over a WIRE, RUNTHROUGH NS FLOPPY .014 300CM 300CM in the RCA Mid was inflated using a 30 DILLAN 10:36:18 INDEFLATOR at 8 dillan for 8 sec. SAPPHIRE II PRO 2.0 X 20 A balloons over a WIRE, RUNTHROUGH NS FLOPPY .014 300CM 300CM in the RCA Mid was inflated using a 30 DILLAN 10:36:37 INDEFLATOR at 10 dillan for 10 sec. SAPPHIRE II PRO 2.0 X 20 A balloons over a WIRE, RUNTHROUGH NS FLOPPY .014 300CM 300CM in the RCA Dist was inflated usin g a 30 DILLAN 10:37:38 INDEFLATOR at 8 dillan for 12 sec. SAPPHIRE II PRO 2.0 X 20 10:38:03 Balloon Removed. 10:40:21 HR=56 bpm, QVUV=878/67 mmhg, SpO2=99 %, Resp=8 B/min, Pain=0, Olga=10, Monk=2 A STENT, 2.5 38MM LINDSAY 2.5 38MM was advanced through a JR 5.0 GUIDE CATHETER FR 6 over a WIRE, 10:40:48 RUNTHROUGH NS FLOPPY .014 300CM 300CM. A STENT, 2.5 38MM LINDSAY 2.5 38MM was deployed using a 30 DILLAN INDEFLATOR at 18 atmospheres for 13 seconds in 10:40:50 the RCA Dist. A STENT, 2.5 38MM LINDSAY 2.5 38MM was deployed using a 30 DILLAN INDEFLATOR at 18 atmospheres for 13 seconds in 10:41:51 the RCA Dist. 10:42:17 Delivery device removed A STENT, 3.0 38MM LINDSAY 3.0 38MM was advanced through a IM DXTERITY CATHETER FR 5 over a WIRE, 10:43:35 RUNTHROUGH NS FLOPPY .014 300CM 300CM. A STENT, 3.0 38MM LINDSAY 3.0 38MM was deployed using a 30 DILLAN INDEFLATOR at 18 atmospheres for 10 seconds in 10:44:20 the RCA Prox. A STENT, 3.0 38MM LINDSAY 3.0 38MM was deployed using a 30 DILLAN INDEFLATOR at 18 atmospheres for 10 seconds in 10:44:58 the RCA Prox. 10:45:22 HR=54 bpm, ZHLD=536/71 mmhg, SpO2=99.0 %, Resp=10 B/min, Pain=0, Olga=10, Monk=2 10:46:00 100 mcg NTG (IC) given in lab by Yomi Rey in Right Groin via Intra-coronary. Ordered by Yomi Rey. 10:46:03 Delivery device removed 10:46:12 Wire removed After removing the current catheter a XB 3.5 GUIDE CATHETER FR 6 was advanced over a WIRE, 3MMJ .035 180CM 10:47:05 180CM. 10:47:11 Activated Clotting Time Drawn 10:48:47 A WIRE, RUNTHROUGH NS FLOPPY .014 300CM 300CM was inserted via Fem Art (right). 10:48:58 Interventional wire has crossed the lesion 10:50:21 HR=51 bpm, DSNA=961/81 mmhg, SpO2=99 %, Resp=12 B/min, Pain=0, Olga=10, Monk=2 A STENT, 2.25 26MM LINDSAY 2.25 26MM was advanced through a XB 3.5 GUIDE CATHETER FR 6 over a WIRE , 10:51:01 RUNTHROUGH NS FLOPPY .014 300CM 300CM. A STENT, 2.25 26MM LINDSAY 2.25 26MM was deployed using a 30 DILLAN INDEFLATOR at 7 atmospheres for 1 0 seconds in 10:51:53 the CIRC Mid. 10:52:14 ACT (Normal Range 90-180) = 262 10:52:33 Delivery device removed 10:53:45 Wire removed 10:53:57 A WIRE, 3MMJ .035 180CM 180CM was inserted via Fem Art (right). 10:54:04 Catheter was removed 10:54:26 Case End (Physician broke scrub) PCI QA completed: Pre-Ravindra - ~PRE RAVINDRA~, Post Ravindra - ~POST RAVINDRA~, Type - ~TYPE~, Length - ~ARJUN GTH~ mm, 10:54:33 Morphology - ~MORPHOLOGY~, Indications - ~INDICATIONS~, Pre-Stenosis - 90% and Post Stenosis - 0%. 10:54:35 PCI QA obtained from Boring Inspector PCI QA completed: Pre-Ravindra - ~PRE RAVINDRA~, Post Ravindra - ~POST RAVINDRA~, Type - ~TYPE~, Length - ~ARJUN GTH~ mm, 10:54:36 Morphology - ~MORPHOLOGY~, Indications - ~INDICATIONS~, Pre-Stenosis - 90% and Post Stenosis - 0%. 10:54:37 PCI QA obtained from Boring Inspector PCI QA completed: Pre-Ravindra - 3, Post Ravindra - 3, Type - ~TYPE~, Length - 24 mm, Morphology - ~MO RPHOLOGY~, 10:55:06 Indications - ~INDICATIONS~, Pre-Stenosis - 80% and Post Stenosis - 0%. 10:55:25 HR=52 bpm, ZYKY=122/83 mmhg, ZbI0=390.0 %, Resp=15 B/min, Pain=0, Olga=10, Monk=2 10:59:47 Catheter(s) removed without difficulty 10:59:50 In the Fem Art (right) the SHEATH, FR6.5 PRELUDE 11CM FR 6.[address] by Kathy Ya RT(R). 10:59:58 Sterile dressing applied to site 11:00:02 Cine recording checked. 11:00:05 Bedside Report will be given. 11:00:08 A Left Heart Cath was performed. 11:00:24 HR=52 bpm, GIYJ=270/91 mmhg, SpO2=98.0 %, Resp=13 B/min, Pain=0, Olga=10, Monk=2 11:04:41 Vitals capture stopped. Assessment: Final Case, HR=52 BPM, LTVY=026/91 mmhg, Edema=None, Color=Normal, Skin = Warm, Dr y Right Pulses: Bill Ped=1, Femoral=2 11:04:45 Left Pulses: Bill Ped=1, Femoral=2 Neurological: State=Alert, Ox3, CULVER Respiration: Resp=13 B/min, SpO2=98 % 11:09:57 Patient moved to stretcher End Study - Maximum Contrast Load Max Contrast Load (mL) 257.7 End Study - Radiation Exposure Fluoro Time (minutes) 12.3 End Study - Patient Disposition Complications Transferred To Telemetry Bed
[2018-09-05] MEDS ORDERED: Iohexol 350 MG/ML 100 ML Vial (for Cath Lab) IVCONTRAST ONE (12:25)
[2018-09-05] MEDS ORDERED: Temazepam 15 MG Capsule PO SCH (21:00)
[2018-09-05] MEDS: Senna/Docusate Sodium 8.6/50 MG Tablet PO SCH (21:33)
[2018-09-06 05:25] LABS: Baso # (Auto) 0.1 th/mm3 (0.0-0.2); Baso % (Auto) 0.7 % (0.0-2.0); Eos # (Auto) 0.2 th/mm3 (0.0-0.4); Eos % (Auto) 2.2 % (0.0-4.0); Hematocrit 43.9 % (39.0-51.0); Hemoglobin 14.9 gm/dL (13.0-17.0); Lymph # (Auto) 2.4 th/mm3 (1.0-4.8); Lymph % (Auto) 22.8 % (9.0-44.0); Mean Corpuscular Hemoglobin 34.1 pg (27.0-34.0); Mean Corpuscular Volume 100.2 fL (80.0-100.0); Mean Platelet Volume 7.4 fL (7.0-11.0); Mono # (Auto) 1.1 th/mm3 (0.0-0.9); Mono % (Auto) 11.1 % (0.0-8.0); Neut # (Auto) 6.5 th/mm3 (1.8-7.7); Neut % (Auto) 63.2 % (16.0-70.0); Platelet Count 273 th/mm3 (150-450); Red Blood Count 4.38 mil/mm3 (4.50-5.90); Red Cell Distribution Width 14.9 % (11.6-17.2); White Blood Count 10.3 th/mm3 (4.0-11.0)
[2018-09-06 05:49] LABS: Calcium 7.9 mg/dL (8.5-10.1); Carbon Dioxide 24.3 meq/L (21.0-32.0); Potassium 4.2 meq/L (3.5-5.1)
[2018-09-06 05:52] LABS: Chol/HDL Ratio 4.91 Ratio
[2018-09-06] MEDS ORDERED: Isosorbide Mononitrate 60 MG ER 24HR Tablet (Imdur) PO SCH ×2 (07:00→08:56)
--- NOTE | 2018-09-06 07:28 | P.PNCA ---
Subjective Interval history: Doing well. Lying in bed without complaints. Patient states he is not been up and ambulating yet. Eager to go home. Medications and Allergies Active Medications: Active Medications Acetaminophen (Tylenol) 650 mg PO Q4H PRN PRN Reason: Temp > 100.4 Al Hydroxide/Mg Hydroxide (Milk Of Magnkyra Liq) 30 ml PO Q12H PRN PRN Reason: Mild Constipation Aspirin (Aspirin Chew) 81 mg PO DAILY [facility] Last Admin: 09/05/18 09:29 Dose: 81 mg Atorvastatin Calcium (Lipitor) 40 mg PO HS [facility] Last Admin: 09/05/18 21:40 Dose: 40 mg Clopidogrel Bisulfate (Plavix) 75 mg PO DAILY [facility] Last Admin: 09/05/18 09:29 Dose: 75 mg Enalapril Maleate (Vasotec) 10 mg PO DAILY [facility] Last Admin: 09/05/18 12:43 Dose: 10 mg Isosorbide Mononitrate (Imdur) 120 mg PO DAILY@0700 [facility] Last Admin: 09/06/18 06:54 Dose: 120 mg Lidocaine HCl (Xylocaine 2% Jelly) 5 ml TOPICAL PRN PRN PRN Reason: For male mendoza catheter insert Metoprolol Tartrate (Lopressor) 25 mg PO BID [facility] Last Admin: 09/05/18 21:40 Dose: 25 mg Ondansetron HCl (Zofran Inj) 4 mg IV.PUSH Q6H PRN PRN Reason: NAUSEA OR VOMITING Oxycodone/Acetaminophen (Percocet 5/325 Mg) 1 tab PO Q4H PRN PRN Reason: PAIN SCALE 3 TO 5 Senna/Docusate Sodium (Asia-Colace) 1 tab PO BID [facility] Last Admin: 09/05/18 21:33 Dose: Not Given Sodium Chloride (Ns Flush) 2 ml IV.FLUSH BID [facility] Last Admin: 09/05/18 21:41 Dose: 2 ml Sodium Chloride (Ns Flush) 2 ml IV.FLUSH PRN PRN PRN Reason: FLUSH AFTER USING IV ACCESS Sodium Chloride (Ns Flush) 2 ml IV.FLUSH BID [facility] Last Admin: 09/06/18 06:33 Dose: Not Given Temazepam (Restoril) 15 mg PO HS [facility] Last Admin: 09/05/18 21:40 Dose: 15 mg Allergies Allergy/AdvReac Type Severity Reaction Status Date / Time No Known Allergies Uncoded 04/15/09 15:48 Home Medications Medication Instructions Recorded Confirmed Type aspirin 81 mg PO DAILY 09/04/18 09/04/18 History clopidogrel [Plavix] 75 mg PO DAILY 09/04/18 09/04/18 History enalapril maleate 10 mg PO DAILY 09/04/18 09/04/18 History metoprolol tartrate 25 mg PO BID 09/04/18 09/04/18 History temazepam 15 mg PO HS 09/04/18 09/04/18 History Physical Exam Vital signs: Vital Signs 09/05/18 08:00 09/05/18 08:17 09/05/18 08:18 Temperature 97.8 F Pulse Rate 54 L 61 Respiratory Rate 18 Blood Pressure 118/73 Pulse Oximetry 97 97 09/05/18 09:00 09/05/18 10:51 09/05/18 11:27 Temperature 97.6 F Pulse Rate 62 52 L Respiratory Rate 17 Blood Pressure 126/70 Pulse Oximetry 97 98 09/05/18 12:00 09/05/18 13:00 09/05/18 14:00 Temperature Pulse Rate 54 L 52 L 54 L Respiratory Rate Blood Pressure Pulse Oximetry 09/05/18 15:00 09/05/18 16:00 09/05/18 17:00 Temperature 98 F 97.9 F Pulse Rate 54 L 54 L 56 L Respiratory Rate 17 17 Blood Pressure 121/70 131/77 Pulse Oximetry 98 98 09/05/18 18:00 09/05/18 19:00 09/05/18 20:00 Temperature 98.2 F Pulse Rate 58 L 60 60 Respiratory Rate 22 Blood Pressure 125/69 Pulse Oximetry 93 L 09/05/18 21:00 09/05/18 22:00 09/05/18 23:00 Temperature Pulse Rate 61 58 L 60 Respiratory Rate Blood Pressure Pulse Oximetry 09/06/18 00:00 09/06/18 01:00 09/06/18 02:00 Temperature 97.9 F Pulse Rate 60 60 60 Respiratory Rate 22 Blood Pressure 133/72 Pulse Oximetry 94 L 09/06/18 03:00 09/06/18 04:00 09/06/18 05:00 Temperature 97.7 F Pulse Rate 58 L 57 L 59 L Respiratory Rate 20 Blood Pressure 124/70 Pulse Oximetry 98 09/06/18 06:00 Temperature Pulse Rate 62 Respiratory Rate Blood Pressure Pulse Oximetry Intake & Output 09/05/18 09/06/18 09/06/18 18:59 06:59 18:59 Intake Total 240 / 240 1500 / 1500 Output Total 800 / 800 Balance -560 / -560 1500 / 1500 Weight 66.5 kg Intake: IV 1500 / 1500 Oral 240 / 240 Output: Urine 800 / 800 - Constitutional no acute distress - Routine HEENT Exam Head: Present: normocephalic Eye: Present: EOMI, PERRL ENT: Present: mucous membranes moist - Routine Neck Exam Absent: JVD - Routine Respiratory Exam Present: CTA bilaterally - Routine Cardiovascular Exam Present: RRR. Absent: murmur - Routine Abdominal Exam Present: soft, normoactive bowel sounds - Routine Extremities Exam Present: pulses intact. Absent: edema - Routine Neurological Exam Absent: sensory deficit, motor deficit Results 09/06/18 05:09 09/06/18 05:09 Cardiac Enzymes 09/04/18 Range/Units 20:10 AST 20 (15-37) U/L Troponin I 0.62 H* (0.02-0.05) ng/mL Coagulation 09/04/18 09/05/18 Range/Units 20:10 03:23 PT 9.6 L (9.8-11.6) sec APTT 28.2 56.2 H D (23.4-31.7) sec Lipids 09/06/18 Range/Units 05:09 Triglycerides 175 H (42-150) mg/dL Cholesterol 172 (120-200) mg/dL HDL Cholesterol 35.0 L (40.0-60.0) mg/dL Cholesterol/HDL Ratio 4.91 Ratio CBC 09/04/18 09/05/18 09/06/18 Range/Units 20:10 03:23 05:09 WBC 9.1 8.4 10.3 (4.0-11.0) th/mm3 RBC 4.67 4.38 L 4.38 L (4.50-5.90) mil/mm3 Hgb 15.9 14.8 14.9 (13.0-17.0) gm/dL Hct 45.8 43.5 43.9 (39.0-51.0) % Plt Count 285 262 273 (150-450) th/mm3 Neut # (Auto) 4.2 6.5 (1.8-7.7) th/mm3 Lymph # (Auto) 3.4 2.4 (1.0-4.8) th/mm3 [place] # (Auto) 1.1 H 1.1 H (0.0-0.9) th/mm3 Eos # (Auto) 0.4 0.2 (0.0-0.4) th/mm3 Baso # (Auto) 0.1 0.1 (0.0-0.2) th/mm3 Comprehensive Metabolic Panel 09/04/18 09/06/18 Range/Units 20:10 05:09 Sodium 140 140 (136-145) meq/L Potassium 4.3 4.2 (3.5-5.1) meq/L Chloride 109 H 109 H (98-107) meq/L Carbon Dioxide 25.1 24.3 (21.0-32.0) meq/L BUN 25 H 21 H (7-18) mg/dL Creatinine 1.31 H 1.28 (0.60-1.30) mg/dL Calcium 8.6 7.9 L (8.5-10.1) mg/dL AST 20 (15-37) U/L ALT 17 (12-78) U/L Alkaline Phosphatase 88 (45-117) U/L Total Protein 7.1 (6.4-8.2) g/dL Albumin 3.3 L (3.4-5.0) g/dL Intake and Output 09/05/18 09/06/18 09/06/18 22:59 06:59 14:59 Intake Total 240 / 240 1500 / 1500 Output Total 800 / 800 Balance -560 / -560 1500 / 1500 Intake: IV 1500 / 1500 Oral 240 / 240 Output: Urine 800 / 800 Other: Weight 66.5 kg - Imaging and Cardiology Imaging: Impressions Chest X-Ray 09/04/18 19:59 CONCLUSION: No acute cardiopulmonary disease demonstrated. Previous median sternotomy. Assessment and Plan - Plan 63-year-old male with past medical history of CAD with PCI 2006 CABG LYNNE-LAD 2008 PCI 06/2018, PAD with right iliac stent 2001, HTN who presented with chest pain NSTEMI: Status post cardiac catheterization with percutaneous coronary intervention with drug-eluting stents to the right coronary and left circumflex coronary arteries. We will maximize guideline directed medical therapy with long-acting nitrate. We will continue aspirin and Plavix along with statin and beta- shawn therapy. Plan for discharge today after ambulation. Follow-up in the outpatient setting with Dr. Caputo.
[2018-09-06] MEDS: Metoprolol Tartrate 25 MG Tablet PO SCH (08:33)
[2018-09-06] MEDS: Senna/Docusate Sodium 8.6/50 MG Tablet PO SCH (08:33)
--- NOTE | 2018-09-06 09:05 | P.DS ---
DS: Providers Date of admission: 09/04/18 21:09 Primary care physician: [facility] Consults: 09/04/18 22:41 Consult to Cardiology Routine Consulting Provider: Yomi Rey Does the patient have a Photolithographer who follows them?: No Preferred Director Quality Systems:: Yomi Rey Reason for Consultation: ER discussed case with cardiology nstemi Notified:: Service Spoke with:: Mahsa Date Notified:: 09/04/18 Time Notified:: 22:45 Ordering Provider: RADHA Brief History from admission: 63-year-old male with a history of coronary artery bypass surgery, angina, CVA on Plavix presents to the emergency department for evaluation of chest pain that has been persistent for several months. Patient went to his primary care physician today had an electrocardiogram performed there was sent to emergency room as they felt there was a change from the old electrocardiogram. Patient states the pain he typically gets is about 5/10 midsternal pain feels like an elephant is sitting on his chest radiating to his jaw or left arm with some mild tremors as well in the emergency room he has been pain-free. Patient denies shortness of breath does have a little bit of nausea with these episodes of chest pain. He is a smoker but is compliant with his medications. Patient has not seen cardiology in over 2 years , although he did say that he had stents placed in June patient denies fever chills abdominal pain or leg pain. He does drink alcohol almost daily. In the emergency room he had T waves inferiorly had a positive troponin consistent with non-stent cardiology is aware and is started the patient on with plan for cath in a.m. n.p.o. after midnight. DS: Diagnosis Discharge Diagnosis (1) ACS (acute coronary syndrome): Status: Acute (2) Non-ST elevation DE (NSTEMI): Status: Acute DS: Summary NSTEMI - 63-year-old male with past medical history of CAD - 2007 CABG LYNNE-LAD 2008 PCI 06/2018, - PAD with right iliac stent 2001 & HTN - The patient was previously followed by Dr. Simon, but last saw him 2.5 years ago. - Pt had [address] Moran (06/02) - mid LAD with totally occluded proximal LAD, - PCI to critical mid left circumflex stenosis and distal RCA lesion. - Pt reported to the [facility] (09/04) with c/o severe chest pain with radiation to the jaw & left arm - Pt noted to have EKG changes and elevated troponin - ASA, plavix, enalapril, metoprolol, imdur lipitor - Pt underwent LHC with drug-eluting stents to the right coronary and left circumflex coronary arteries by Dr. Yomi Rey (09/05) - Case d/w Dr. Rey (09/05) - Pt had 2 KING placed at RCA - Pt had 1 KING placed at circumflex artery. - SCDs - supporitve care - Pt continues to actively smoke. Counselled pt on the importance of smoking cessation. - maximize guideline directed medical therapy with long-acting nitrate. Continue aspirin and Plavix along with statin and beta-shawn therapy. - patient hypotensive after isosorbide 120 mg this AM, patient asymptomatic. 1226 BP improving 102/54, plan to DC home on isosorbide 120mg daily - Plan for discharge today after ambulation. - Follow-up in the outpatient setting with Dr. Caputo. Time Spent with Patient Total time spent providing and/or coordinating discharge services: Quality: VTE Deep Vein Thrombosis/Pulmonary Embolism Present on Admission: No Exam Narrative Exam Narrative: GENERAL: This is a well-nourished, well-developed patient, in no apparent distress. CARDIOVASCULAR: Regular rate and rhythm without murmurs, gallops, or rubs. RESPIRATORY: Clear to auscultation. Breath sounds equal bilaterally. No wheezes , rales, or rhonchi. GASTROINTESTINAL: Abdomen soft, non-tender, nondistended. Normal active bowel sounds MUSCULOSKELETAL: Extremities without clubbing, cyanosis, or edema. NEURO: Alert & Oriented x4 to person, place, time, situation. Moves all ext x4 Results Labs on day of discharge: Labs from last 24 hours 09/06/18 09/06/18 05:09 05:09 WBC 10.3 RBC 4.38 L Hgb 14.9 Hct 43.9 MCV 100.2 H MCH 34.1 H MCHC 34.0 RDW 14.9 Plt Count 273 MPV 7.4 Neut % (Auto) 63.2 Lymph % (Auto) 22.8 [place] % (Auto) 11.1 H Eos % (Auto) 2.2 Baso % (Auto) 0.7 Neut # (Auto) 6.5 Lymph # (Auto) 2.4 [place] # (Auto) 1.1 H Eos # (Auto) 0.2 Baso # (Auto) 0.1 WBC Differential . Differential Comment Auto diff final Sodium 140 Potassium 4.2 Chloride 109 H Carbon Dioxide 24.3 Anion Gap 7 BUN 21 H Creatinine 1.28 Estimated GFR 56 L Random Glucose 105 Calcium 7.9 L Total Creatine Kinase 80 Triglycerides 175 H Cholesterol 172 LDL Cholesterol, Calc 102 H HDL Cholesterol 35.0 L Cholesterol/HDL Ratio 4.91 Impressions ITS Impressions Chest X-Ray 09/04/18 19:59 CONCLUSION: No acute cardiopulmonary disease demonstrated. Previous median sternotomy. Discharge Plan Discharge Disposition Patient Disposition: Discharge Home Discharge Condition Condition: Stable Discharge Order Discharge Orders: Discharge Order (Routine); Ordered 09/06/18 Ordered By: Chanda Rodrigues Cardiology Clear for Discharge (Routine); Ordered 09/06/18 Ordered By: Yomi Rey Discharge Details Discharge Comment: DC home today after ambulation Physicians Team ED Provider: Rosendo Grier ED Midlevel Provider: Jen Padilla Primary Care Provider: [facility], Attending Provider: Fabian Youssef Other Providers: Yomi Rey Rxs /Orders / Referrals /Forms Prescriptions: New atorvastatin 40 mg Tablet 40 mg PO HS 30 Days Qty: 30 RF: 0 isosorbide mononitrate 60 mg tablet extended release 24 hr 60 mg PO DAILY 30 Days Qty: 30 RF: 0 Continue enalapril maleate 10 mg Tablet 10 mg PO DAILY RF: 0 clopidogrel [Plavix] 75 mg Tablet 75 mg PO DAILY RF: 0 temazepam 15 mg Capsule 15 mg PO HS RF: 0 aspirin 81 mg Tablet,Chewable 81 mg PO DAILY RF: 0 metoprolol tartrate 25 mg Tablet 25 mg PO BID RF: 0 Referrals: [facility], [Primary Care Provider] - See Instructions John Caputo DO [Physician] - See Instructions (follow up in 2 weeks) Discharge Instructions Patient Printed Instructions: Isosorbide Mononitrate (By mouth), Atorvastatin ( By mouth), Chest Pain (ED), How to Stop Smoking (DC), Heart Healthy Diet (DC), Acute Wound Care (DC), Coronary Intravascular Stent Placement (DC) Status ED Status: Left Department Discharge Information Discharge Date/Time: 09/06/18 16:08
== END 2018-09-06 16:08 | disposition home or self-care (01) ==
LOC: NEPD 15:59 → NEDA 21:09 → HCPC 23:34 → HCIS 09-06 11:06
PROVIDERS: ADMIT Hospitalist; ATTEND Hospitalist